=== PATIENT | male | born 1995 | race Caucasian/White ===

== ENCOUNTER 2023-08-15 14:47 | Outpatient (CLI) | payer OTHER, SELFPAY | END 2023-08-15 14:48 | disposition home or self-care (01) | PROVIDERS: Visit Provider Family Medicine | DX: R19.7 Diarrhea, unspecified (principal) | CPT/HCPCS: 84443; 86140 ==

== ENCOUNTER 2023-08-21 11:57 | Outpatient (CLI) | payer OTHER, SELFPAY | END 2023-08-21 11:58 | disposition home or self-care (01) | LOC: NFLDREF 08-22 09:42 | PROVIDERS: Visit Provider Physician Assistant | DX: R19.7 Diarrhea, unspecified (principal) | CPT/HCPCS: 87045; 87046; 87338; 87427; 87493 ==

== ENCOUNTER 2024-12-05 02:21 | Outpatient (CLI) | payer OTHER, SELFPAY | END 2024-12-05 02:22 | disposition home or self-care (01) | LOC: AMB 12-07 10:24 | PROVIDERS: Visit Provider Family Medicine | DX: S09.90XA Unspecified injury of head, initial encounter (principal); S09.93XA Unspecified injury of face, initial encounter; V86.55XA Driver of 3- or 4- wheeled all-terrain vehicle (ATV) injured in nontraffic accident, initial encounter; Y92.9 Unspecified place or not applicable | CPT/HCPCS: A0425; A0427 ==